=== PATIENT | female | born 1985 | race Caucasian/White ===

== ENCOUNTER 2018-09-21 23:51 | Emergency (ER) | payer OTHER ==
[~2018-09-21] VITALS: Ht 149.9 cm; Wt 44.9 kg
[2018-09-21 23:55] VITALS: Ht 149.9 cm; Wt 44.9 kg
[2018-09-22 01:22] VITALS: BP 104/66
== END 2018-09-22 01:22 | disposition home or self-care (01) ==
LOC: ED 23:51
DX: J06.9 Acute upper respiratory infection, unspecified (principal); J40 Bronchitis, not specified as acute or chronic; Z88.6 Allergy status to analgesic agent; Z88.5 Allergy status to narcotic agent
CPT/HCPCS: 87804; J7613

== ENCOUNTER 2019-03-13 14:57 | Emergency (ER) | payer OTHER ==
[~2019-03-13] VITALS: Ht 149.9 cm; Wt 44.9 kg
[2019-03-13 15:12] VITALS: Ht 149.9 cm; Wt 44.9 kg
[2019-03-13 16:11] LABS: BASOPHIL % 0.1 % (0-2)
[2019-03-13 16:19] LABS: CALCIUM 9.2 mg/dL (8.5-10.1); CARBON DIOXIDE 22.4 mmol/L (21-32); CHLORIDE SERUM 101 mmol/L (98-107); CREATININE SERUM 0.6 mg/dL (0.6-1.0); GFR1 > 60 mL/min; GLUCOSE SERUM 95 mg/dL (74-106); POTASSIUM SERUM 3.5 mmol/L (3.5-5.1); SODIUM SERUM 137 mmol/L (136-145)
[2019-03-13 16:24] LABS: ALBUMIN 4.3 g/dL (3.4-5.0); ALKALINE PHOSPHATASE 48 U/L (46-116); ALT/SGPT 10 U/L (14-59); AST/SGOT 6 U/L (15-37); BILIRUBIN TOTAL 0.43 mg/dL (0.20-1.00); LIPASE 146 IU/L (73-393); TOTAL PROTEIN, SERUM 7.4 g/dL (6.4-8.2)
[2019-03-13 16:35] LABS: PLATELET COUNT 551 x10^3mcL (130-400); RED CELL DISTRIBUTION WIDTH 18.1 % (11.5-14.5)
[2019-03-13 18:34] VITALS: BP 125/74
== END 2019-03-13 18:34 | disposition home or self-care (01) ==
LOC: ED 14:57
PROVIDERS: Emergency Medicine
DX: N83.202 Unspecified ovarian cyst, left side (principal); N85.8 Other specified noninflammatory disorders of uterus; D64.9 Anemia, unspecified; J45.909 Unspecified asthma, uncomplicated; Z88.8 Allergy status to other drugs, medicaments and biological substances; Z88.5 Allergy status to narcotic agent
CPT/HCPCS: 36415; J7030; Q9967

== ENCOUNTER 2019-05-11 09:38 | Emergency (ER) | payer MEDICAID ==
[~2019-05-11] VITALS: Ht 157.5 cm; Wt 46.4 kg
[2019-05-11 09:49] VITALS: Ht 157.5 cm; Wt 46.4 kg
[2019-05-11 10:38] LABS: BASOPHIL % 0.8 % (0-2); PLATELET COUNT 296 x10^3mcL (130-400)
[2019-05-11 10:52] LABS: RED CELL DISTRIBUTION WIDTH 25.6 % (11.5-14.5)
[2019-05-11 11:39] LABS: UA SPECIFIC GRAVITY 1.015 (1.005-1.035); microscopic required? YES; urine erythrocyte 2+ (NEGATIVE)
[2019-05-11 13:26] VITALS: BP 124/70
== END 2019-05-11 13:26 | disposition home or self-care (01) ==
LOC: ED 09:38
PROVIDERS: Emergency Medicine
DX: N93.9 Abnormal uterine and vaginal bleeding, unspecified (principal); N85.8 Other specified noninflammatory disorders of uterus; J45.909 Unspecified asthma, uncomplicated; Z88.8 Allergy status to other drugs, medicaments and biological substances; Z88.5 Allergy status to narcotic agent; Z88.6 Allergy status to analgesic agent
CPT/HCPCS: 36415; Q0092